=== PATIENT | male | born 1940 | race Caucasian/White ===

== ENCOUNTER 2022-01-05 21:52 | Emergency (ER) | payer MEDICARE ==
[~2022-01-05] VITALS: Ht 177.8 cm; Wt 61.2 kg
[2022-01-05 22:40] LABS: RED BLOOD COUNT 2.46 M/UL (4.20-5.50); WHITE BLOOD COUNT 8.3 K/UL (4.5-11.0)
[2022-01-05 22:58] LABS: HEMOGLOBIN 5.5 gm/dl (14.0-17.5)
[2022-01-05 23:15] LABS: BUN/CREATININE RATIO 30 (0-10)
== END 2022-01-06 02:15 ==
LOC: ER1 21:52
PROVIDERS: Physician Assistant
DX: D64.9 Anemia, unspecified (principal); K92.2 Gastrointestinal hemorrhage, unspecified; I25.10 Atherosclerotic heart disease of native coronary artery without angina pectoris; I43 Cardiomyopathy in diseases classified elsewhere; I25.2 Old myocardial infarction; K21.9 Gastro-esophageal reflux disease without esophagitis; J44.9 Chronic obstructive pulmonary disease, unspecified; I11.0 Hypertensive heart disease with heart failure; Z20.822 Contact with and (suspected) exposure to COVID-19; I50.9 Heart failure, unspecified; Z88.0 Allergy status to penicillin
CPT/HCPCS: 36430; 71045; 80053; 82272; 82550; 82553; 83735; 83880; 84484; 85025; 85610; 85730; 86850; 86900; 86901; 86920; 93005; 96374; 96376; 99285; C9113; J7050; P9016; U0002